=== PATIENT | male | born 1955 | race Caucasian/White ===

== ENCOUNTER 2020-02-07 20:55 | Emergency (ER) | payer OTHER ==
[~2020-02-07] VITALS: Ht 167.6 cm; Wt 74.8 kg
[~2020-02-07 20:55] MED LIST: ACET500C38 PO; ASPI81CT33 PO; DIPH50CA8 PO; GLU500 PO; LISI-420 PO; MIRT15OD PO; PENT400T PO; SIMV40TA1 PO; [UNRECOGNIZED DRUG - CODE] PO
[2020-02-07 21:00] VITALS: BP 150/85
--- NOTE | 2020-02-07 21:49 | NUR ---
pt ambulated to ER Bed 1 w/ steady gait.
--- NOTE | 2020-02-07 21:58 | NUR ---
65 Y/O MALE PRESENTED TO THE ED C/O 8/10 CONSTANT ABD PAIN THAT IS DIFFUSE IN HIS ABDX3 WKS. AND 8/10 CONSTANT UPPER NECK PAIN. PT DENIES INJURY OR TRAUMA TO THE AREA. PT DENIES FEVER, N/V, DIARRHEA OR CONSTIPATION. BOWEL SOUNDS NORMOACTIVE X4 QUADRANTS. PT STATED APPENDECTOMY X 22 YRS AGO. PT IS LAYING DOWN IN BED, BED IS LOCKED AND IN LOWEST POSITION. PT IS NOT IN ANY ACUTE DISTRESS AT THIS TIME. WILL CONTINUE TO MONITOR. ERMD MADE AWARE OF CURRENT VS AND STATUS. PMH: DM, DEPRESSION, UNSEPECIFIED CARDIAC DISEASE. NKA
--- NOTE | 2020-02-07 22:20 | NUR ---
ERMD AT BEDSIDE FOR MEDICAL EVALUATION
--- NOTE | 2020-02-07 22:36 | NUR ---
XRAY AT BEDSIDE.
[2020-02-07 22:55] VITALS: BP 150/85
--- NOTE | 2020-02-07 22:55 | NUR ---
Patient discharged with v/s stable. Written and verbal after care instructions given and explained. Patient alert, oriented and verbalized understanding of instructions. Ambulatory with steady gait. All questions addressed prior to discharge. ID band removed. Patient advised to follow up with PMD. Rx of MILK OF MAGENSIUM given. Patient educated on indication of medication including possible reaction and side effects. Opportunity to ask questions provided and answered.
== END 2020-02-07 22:55 | disposition home or self-care (01) ==
LOC: MED 20:55
DX: K59.00 Constipation, unspecified (principal); M54.2 Cervicalgia; E11.9 Type 2 diabetes mellitus without complications; F14.90 Cocaine use, unspecified, uncomplicated; Z79.82 Long term (current) use of aspirin; Z79.899 Other long term (current) drug therapy; Z79.84 Long term (current) use of oral hypoglycemic drugs
CPT/HCPCS: 74018; 99283

== ENCOUNTER 2020-08-06 22:17 | Emergency (ER) | payer OTHER ==
[~2020-08-06] VITALS: Ht 165.1 cm; Wt 77.1 kg
[~2020-08-06 22:17] MED LIST changes: -LISI-420 PO; +LISI20TA29 PO
[2020-08-06 22:33] VITALS: BP 143/82
--- NOTE | 2020-08-06 22:34 | NUR ---
AMBULATED TO ER BED 6
--- NOTE | 2020-08-06 22:50 | NUR ---
pt came in c/o chest pain for 1 month. pain an 8/10 that comes and goes. VSS. No c/o SOB, fever, n/v/d. AAOx4. PMH: hypertension, diabetes Allergies: NKA Meds: isosorbide, carvedilol
[2020-08-06] MEDS: ASPIRIN 325 MG TAB PO ONE (23:37)
[2020-08-06] MEDS: PANTOPRAZOLE 40 MG TABEC PO ONE (23:38)
[2020-08-06] MEDS: ACETAMINOPHEN EXTRA STRENGTH 500 MG TAB PO ONE (23:38)
[2020-08-06] MEDS: NITROGLYCERIN 0.4 MG TAB SL ONE (23:39)
--- NOTE | 2020-08-06 23:57 | NUR ---
Patient currently talking on the phone. patient denies c/p at this time.
[2020-08-06 23:58] LABS: BASOPHILS % (AUTO) 0.8 % (0.0-2.0); EOSINOPHILS # (AUTO) 0.1 K/uL (0-0.4); EOSINOPHILS % (AUTO) 2.6 % (0.0-4.0); HEMATOCRIT 39.1 % (36-52); HEMOGLOBIN 13.2 g/dL (12.0-18.0); LYMPHOCYTES # (AUTO) 1.9 K/uL (2.0-11.5); LYMPHOCYTES % (AUTO) 36.5 % (20.5-51.1); MEAN CORPUSCULAR HEMOGLOBIN 29 pg (27-31); MEAN CORPUSCULAR HGB CONC 34 g/dL (33-37); MEAN CORPUSCULAR VOLUME 86.9 fL (80-94); MONOCYTES # (AUTO) 0.4 K/uL (0.8-1.0); MONOCYTES % (AUTO) 7.7 % (1.7-9.3); NEUTROPHILS # (AUTO) 2.7 K/uL (1.8-7.7); NEUTROPHILS % (AUTO) 52.4 % (42.2-75.2); PLATELET COUNT (AUTO) 146 K/uL (140-450); RED CELL DISTRIBUTION WIDTH 14.4 % (11.6-13.7); WHITE BLOOD COUNT (AUTO) 5.1 K/uL (4.8-10.8)
[2020-08-07 00:15] LABS: ALBUMIN 3.7 g/dL (3.4-5.0); ANION GAP 11.8 (8-16); CARBON DIOXIDE 29.7 mmol/L (21-32); CREATININE 1.2 mg/dL (0.6-1.3); POTASSIUM 4.5 mmol/L (3.5-5.1); TOTAL BILIRUBIN 0.3 mg/dL (0.0-1.0)
--- NOTE | 2020-08-07 01:01 | NUR ---
Patient appears to be resting comfortably in bed. Vital Signs within normal limits. Respirations even and unlabored. no signs of acute distress at this time
--- NOTE | 2020-08-07 02:21 | NUR ---
Patient appears to be resting comfortably in bed. Vital Signs within normal limits. Respirations even and unlabored. No signs of acute distress.
--- NOTE | 2020-08-07 02:25 | NUR ---
patient ambulated to the bathroom
[2020-08-07] MEDS ORDERED: NITR0.4T95 SL (02:33)
--- NOTE | 2020-08-07 03:01 | NUR ---
Patient discharged with v/s stable. Written and verbal after care instructions given and explained. Patient alert, oriented and verbalized understanding of instructions. Ambulatory with steady gait. All questions addressed prior to discharge. ID band removed. Patient advised to follow up with PMD. Rx of NITROGLYCERIN given. Patient educated on indication of medication including possible reaction and side effects. Opportunity to ask questions provided and answered.
[2020-08-07 03:02] VITALS: BP 136/66
== END 2020-08-07 03:00 | disposition home or self-care (01) ==
LOC: MED 22:17
DX: R07.89 Other chest pain (principal); E11.9 Type 2 diabetes mellitus without complications; I10 Essential (primary) hypertension; Z79.899 Other long term (current) drug therapy
CPT/HCPCS: 36415; 71045; 80053; 82948; 84484; 85025; 99285

== ENCOUNTER 2022-06-13 09:31 | Emergency (ER) | payer OTHER ==
[~2022-06-13] VITALS: Ht 170.2 cm; Wt 77.1 kg
[~2022-06-13 09:31] MED LIST changes: -DIPH50CA8 PO; +NITR0.4T95 SL; +SIMV-373 PO; -SIMV40TA1 PO; +[UNRECOGNIZED DRUG - CODE] PO
[2022-06-13 09:49] VITALS: BP 122/81
--- NOTE | 2022-06-13 09:57 | NUR ---
PA Padilla evaluating patient at bedside
--- NOTE | 2022-06-13 10:00 | NUR ---
67 y/o M BIB self from home c/o left wrist wound x 1 month. Patient A&Ox4 denies injury, trauma. States symptoms worsening since onset. Denies pain, OTC medications. Bed locked in lowest position, side rails x1. PMH/Sx/Meds: DM, HLD NKDA
[2022-06-13] MEDS ORDERED: CEPH-588 PO (10:06)
[2022-06-13] MEDS ORDERED: MUPI1OIN TP (10:06)
--- NOTE | 2022-06-13 10:15 | NUR ---
Patient discharged with v/s stable. Written and verbal after care instructions given and explained for Impetigo, Adult. Patient alert, oriented and verbalized understanding of instructions. Ambulatory with steady gait. All questions addressed prior to discharge. ID band removed. Patient advised to follow up with PMD. Rx of Keflex, Mupirocin given. Patient educated on indication of medication including possible reaction and side effects. Opportunity to ask questions provided and answered.
== END 2022-06-13 10:15 | disposition home or self-care (01) ==
LOC: MED 09:31
DX: L01.00 Impetigo, unspecified (principal); E11.9 Type 2 diabetes mellitus without complications; I10 Essential (primary) hypertension; Z79.899 Other long term (current) drug therapy; Z79.82 Long term (current) use of aspirin; Z79.2 Long term (current) use of antibiotics
CPT/HCPCS: 99283

== ENCOUNTER 2022-09-14 01:55 | Emergency (ER) | payer OTHER ==
[~2022-09-14] VITALS: Ht 165.1 cm; Wt 78.0 kg
[~2022-09-14 01:55] MED LIST changes: +CEPH-588 PO; +MUPI1OIN TP
[2022-09-14 02:00] VITALS: BP 153/90; PULSE 73; RESP 16; TEMP 97.7; O2SAT 96
--- NOTE | 2022-09-14 02:03 | NUR ---
to lobby a/w bed ambulatory
--- NOTE | 2022-09-14 03:15 | NUR ---
seen and examined by Kristi
--- NOTE | 2022-09-14 04:03 | NUR ---
PT TAKEN TO RADIOLOGY
--- NOTE | 2022-09-14 04:09 | NUR ---
PT TAKEN TO BED 1
[2022-09-14 05:10] VITALS: BP 125/79; PULSE 78; RESP 16; TEMP 98; O2SAT 98
--- NOTE | 2022-09-14 05:10 | NUR ---
Patient discharged with v/s stable. Written and verbal after care instructions given and explained. Patient verbalized understanding. Ambulatory with steady gait. All questions addressed prior to discharge. Advised to follow up with PMD.
== END 2022-09-14 05:10 | disposition home or self-care (01) ==
LOC: MED 01:55
DX: S91.111A Laceration without foreign body of right great toe without damage to nail, initial encounter (principal); E11.9 Type 2 diabetes mellitus without complications; I10 Essential (primary) hypertension; Z79.84 Long term (current) use of oral hypoglycemic drugs; Z79.899 Other long term (current) drug therapy; W20.8XXA Other cause of strike by thrown, projected or falling object, initial encounter; Y93.89 Activity, other specified; Y92.89 Other specified places as the place of occurrence of the external cause; Y99.8 Other external cause status
CPT/HCPCS: 12001; 73660; 99283

== ENCOUNTER 2023-08-20 02:05 | Emergency (ER) | payer OTHER ==
[~2023-08-20] VITALS: Ht 167.6 cm; Wt 77.1 kg
[2023-08-20 02:15] VITALS: BP 140/75; PULSE 80; RESP 18; TEMP 98; O2SAT 97
[2023-08-20 02:33] VITALS: O2SAT 98
[2023-08-20] MEDS ORDERED: [UNRECOGNIZED DRUG - CODE] TP (03:33)
[2023-08-20] MEDS ORDERED: DIPH25TA53 PO (03:33)
== END 2023-08-20 03:44 | disposition home or self-care (01) ==
LOC: MED 02:05
DX: L29.9 Pruritus, unspecified (principal); E11.9 Type 2 diabetes mellitus without complications; I10 Essential (primary) hypertension; Z90.49 Acquired absence of other specified parts of digestive tract; Z86.79 Personal history of other diseases of the circulatory system; Z79.1 Long term (current) use of non-steroidal anti-inflammatories (NSAID); Z79.2 Long term (current) use of antibiotics; Z79.82 Long term (current) use of aspirin; Z79.84 Long term (current) use of oral hypoglycemic drugs; Z79.899 Other long term (current) drug therapy
CPT/HCPCS: 99282